=== PATIENT | female | born 1985 | race African-American/Black ===

== ENCOUNTER 2017-05-28 20:47 | Emergency (ER) | payer OTHER ==
[~2017-05-28] VITALS: Ht 177.8 cm; Wt 74.8 kg
[2017-05-28] MEDS ORDERED: LEXAPRO10 M1 PO (21:25)
[2017-05-28] MEDS ORDERED: NEXIUM40 M1 PO (21:26)
--- NOTE | 2017-05-28 21:27 | ED SYNCOPE COMPLAINT ---
History of Present Illness General Chief Complaint: Syncope and Near-Syncope Stated Complaint: PER PT "GOT DIZZY AND PASSED OUT" Source: patient, family, old records Exam Limitations: no limitations Vital Signs & Intake/Output Vital Signs & Intake/Output Vital Signs Date Time Temp Pulse Resp B/P B/P Pulse O2 O2 Flow FiO2 Mean Ox Delivery Rate 05/28 2052 97.6 78 18 125/85 100 Room Air Allergies Coded Allergies: No Known Allergies (05/28/17) Reconcile Medications Escitalopram Oxalate (Lexapro) 10 MG TABLET 1 TAB PO DAILY MENTAL HEALTH ( Reported) Esomeprazole (Nexium) 40 MG CAPSULE. 1 CAP PO DAILY GI (Reported) Triage Note: PT TO TRIAGE S/P UNWITNESSED SYNCOPAL EPIZODE AT HOME, PT FELT DIZZY AND PASSED OUT, WOKE UP ON A FLOOR. PT UNSURE IF SHE HIT HER HEAD, DENIES ANY PAIN IN TRIAGE, DENIES CHEST PAIN/SOB,ABD PAIN. VSS. REPORTS SLIGHT DIZZINESS AT THIS TIME. Triage Nurses Notes Reviewed? yes Timing: single episode today Precipitating Factors: lightheadedness Context: became dizzy/fainted Loss of Consciousness: unsure Associated Symptoms: dizziness, headache, nausea/vomiting LMP (ages 10-50): unknown : No Patient currently breastfeeds: No HPI: Prior to admission patient felt dizzy and collapsed unsure how long she was unconscious. Now complains of dizziness nausea headache. She denies fever chills chest pain cough shortness of breath dysuria rash bleeding substance abuse previous episodes. Past History Travel History Traveled to [place] past 21 day No Medical History Any Pertinent Medical History? see below for history Psychiatric: depression Surgical History Surgical History: non-contributory Psychosocial History What is your primary language Nepali Tobacco Use: Current Not Daily Family History Hx Contributory? No Review of Systems Review of Systems Constitutional: Reports: no symptoms. EENTM: Reports: no symptoms. Respiratory: Reports: no symptoms. Cardiovascular: Reports: no symptoms. GI: Reports: no symptoms. Genitourinary: Reports: no symptoms. Musculoskeletal: Reports: no symptoms. Skin: Reports: no symptoms. Neurological/Psychological: Reports: see HPI. All Other Systems: Reviewed and Negative Physical Exam Physical Exam General Appearance: well developed/nourished, alert, awake, anxious, mild distress Head: atraumatic, normal appearance Eyes: Bilateral: normal appearance, PERRL, EOMI. Ears, Nose, Throat: normal pharynx, normal ENT inspection Neck: normal inspection, supple, full range of motion, no midline tenderness Respiratory: normal breath sounds, chest non-tender, no respiratory distress, quiet respiration, lungs clear Cardiovascular: regular rate/rhythm, normal peripheral pulses, norml femoral pulses equa Gastrointestinal: normal bowel sounds, soft, non-tender, no organomegaly Back: normal inspection, normal range of motion Extremities: normal capillary refill, normal range of motion, tenderness (left forearm contusion) Psychiatric: awake, alert, oriented x 3 Cranial Nerves: normal hearing, normal speech, PERRL Coordination/Gait: normal finger to nose, normal gait Motor/Sensory: no motor/sensory deficits Reflexes: 2+: bicep (R), bicep (L). Skin: intact, normal color, warm/dry Lymphatic: no anterior cervical alysa Core Measures ACS in differential dx? Yes ASA ordered for poss ACS? No-ACS ruled out CVA/TIA Diagnosis: No Severe Sepsis Present: No Septic Shock Present: No Progress Differential Diagnosis: drug induced syncope, orthostatic syncope, seizure, subarachnoid hem. Plan of Care: Orders Procedure Date/time Status TROPONIN LEVEL 05/28 2121 Complete PROLACTIN 05/28 2121 Complete MAGNESIUM 05/28 2121 Complete HUMAN BETA HCG SCREEN 05/28 2121 Complete D-DIMER 05/28 2121 Complete COMPREHENSIVE METABOLIC PANEL 05/28 2121 Complete CBC WITHOUT DIFFERENTIAL 05/28 2121 Complete EKG 05/28 2121 Active Laboratory Tests 05/28/172144: Anion Gap 10, Estimated GFR > 60, BUN/Creatinine Ratio 14.4, Glucose 88, Calcium 9.3, Magnesium 2.0, Total Bilirubin 0.3, AST 19, ALT 29, Alkaline Phosphatase 62 , Troponin I < 0.01, Total Protein 6.8, Albumin 3.8, Globulin 3.0, Albumin/ Globulin Ratio 1.3, Prolactin 22.0 H, Total Beta HCG NEGATIVE, D-Dimer High Sensitivty 276 H, CBC w Diff NO MAN DIFF REQ, RBC 4.62, MCV 77.1 L, MCH 24.9 L, RDW 14.7 H, MPV 8.3, Gran % 52.7, Lymphocytes % 34.7, Monocytes % 7.3, Eosinophils % 4.6, Basophils % 0.7, Absolute Granulocytes 5.5, Absolute Lymphocytes 3.6 H, Absolute Monocytes 0.8 H, Absolute Eosinophils 0.5, Absolute Basophils 0.1, PUBS MCHC 32.3 L Diagnostic Imaging: Viewed by Me: CT Scan. Discussed w/RAD: CT Scan. Radiology Impression: no acute abnormality, no fracture, no dislocation Initial ED EKG: normal axis, normal intervals, normal p-waves, normal QRS complex, normal sinus rhythm, no ST T wave changes Rhythm Strip: normal sinus rhythm Departure Departure Time of Disposition: 2329 Disposition: HOME OR SELF CARE Condition: Stable Clinical Impression Primary Impression: Syncope and collapse Referrals: SABINE MULLER,LEONARDO Morrison Departure Forms: Customer Survey General Discharge Information
[2017-05-28 22:06] LABS: ABSOLUTE BASOPHIL COUNT 0.1 /CUMM (0.0-0.2); ABSOLUTE EOSINOPHIL COUNT 0.5 /CUMM (0.0-0.7); ABSOLUTE GRANULOCYTE CT 5.5 /CUMM (1.4-6.5); ABSOLUTE LYMPH COUNT 3.6 /CUMM (1.2-3.4); ABSOLUTE MONOCYTE COUNT 0.8 /CUMM (0.10-0.60); BASOPHIL % 0.7 % (0.0-2.0); EOSINOPHIL % 4.6 % (0-5); GRANULOCYTE % 52.7 % (42.2-75.2); HEMATOCRIT 35.6 % (37-47); MEAN CORPUSCULAR HGB 24.9 PG (27.0-31.0); MEAN CORPUSCULAR HGB CONC 32.3 G/DL (33.0-37.0); MEAN CORPUSCULAR VOLUME 77.1 FL (81.0-99.0); MEAN PLATELET VOLUME 8.3 FL (7.4-10.4); PLATELET COUNT 324 /CUMM (130-400); RBC DISTRIBUTION WIDTH 14.7 % (11.5-14.5); RED BLOOD CELL CT 4.62 /CUMM (4.20-5.40); WHITE BLOOD CELL COUNT 10.4 /CUMM (4.8-10.8)
--- NOTE | 2017-05-28 23:07 | CT SCAN REPORT ---
EXAMINATION: CT HEAD WITHOUT CONTRAST CLINICAL INFORMATION: Syncope. COMPARISON: None TECHNIQUE: Contiguous axial imaging was performed from the skull base to vertex without intravenous administration of contrast. DLP: 610 mGy-cm FINDINGS: There is no evidence of acute intracranial hemorrhage or territorial infarction. No abnormal mass effect or midline shift is seen. San to white matter differentiation is well preserved. No extra-axial fluid collections are identified. The ventricles are normal in size. There is no abnormal attenuation within the brain parenchyma. The osseous structures and soft tissues are normal. The mastoid air cells and visualized portions of the paranasal sinuses are well aerated. IMPRESSION: No acute intracranial pathology.
== END 2017-05-28 23:30 ==
LOC: ERH 20:47
PROVIDERS: Emergency Medicine
DX: R55 Syncope and collapse (principal)
CPT/HCPCS: 93005; 93010; 96361; 96374; J2405